=== PATIENT | female | born 1990 | race Caucasian/White ===

== ENCOUNTER → 2021-10-16 | Day surgery (SDC) | payer MEDICARE, OTHER ==
[~2021-10-16] MED LIST: APRISO0.375 GM PO; FIBER CHOICE1.5 GM PO; METAMUCIL PO; MULTIVITAMINS1 EAC1 PO; PROVERA10 MG PO; STOOL SOFTENER100 M1 PO; VITAMIN C250 MG PO; VITAMIN D325 MCG PO; ZINC50 M2 PO
== END | disposition home or self-care (01) ==
LOC: OR 06:58
DX: K50.80 Crohn's disease of both small and large intestine without complications (principal); R16.0 Hepatomegaly, not elsewhere classified; K76.0 Fatty (change of) liver, not elsewhere classified; Q74.3 Arthrogryposis multiplex congenita; E66.01 Morbid (severe) obesity due to excess calories; Z68.42 Body mass index [BMI] 45.0-49.9, adult; Z88.0 Allergy status to penicillin; Z79.899 Other long term (current) drug therapy
CPT/HCPCS: 36415; 84703; J7040